=== PATIENT | male | born 1965 | race Caucasian/White ===

== ENCOUNTER 2017-03-22 16:20 | Outpatient (CLI) | payer OTHER ==
[2017-03-22 17:05] LABS: eGFR (African) > 60; eGFR (Non-African) > 60
== END 2017-03-22 16:21 ==
LOC: LAB 16:20
PROVIDERS: ATTEND Family Medicine
DX: Z00.00 Encounter for general adult medical examination without abnormal findings (principal); I10 Essential (primary) hypertension
CPT/HCPCS: 36415; 80053; 80061

== ENCOUNTER 2018-04-18 10:49 | Day surgery (SDC) | payer OTHER ==
[~2018-04-18 10:49] MED LIST: LACTATED RINGERS 1,000 ML IV.SOLN IV ONE; LIDOCAINE HCL/PF 2% 100 MG/5 ML VIAL IJ ONE; PROPOFOL 200 MG/20 ML VIAL IV ONE; SALINE FLUSH 10 ML DISP.SYRIN IVF ONE
--- NOTE | 2018-04-19 14:40 | GI Report ---
REFERRING PHYSICIAN: Dr. Butch Leo LEAD SOFTWARE DEVELOPMENT ENGINEER: Ang Storey MD PROCEDURE MEDICATION: Propofol as per anesthesia. INDICATIONS: Patient is a 53-year-old man referred for a screening colonoscopy. He denies any change in his stool or blood in the stool. He denies a family history of colorectal cancer. His father had stomach cancer apparently. PROCEDURE PERFORMED: Colonoscopy and polypectomy. PROCEDURE: An Olympus video colonoscope was advanced to the rectum and slowly advanced all the way to the cecum. The appendiceal orifice and terminal ileum looked normal. On slow withdrawal, the cecum and ascending colon with no obvious intraluminal lesions noted. In the transverse colon at 70 cm, patient has a 3 mm to 4 mm flat polyp removed with a cold snare. The descending colon and sigmoid with some redundancy. No obvious intraluminal lesions were noted. Retroflexion of the rectum was normal. Patient tolerated the procedure well. FINDINGS: One small flat polyp removed with a cold snare in the transverse colon. RECOMMENDATIONS: 1. A high-fiber diet. 2. Pending the pathology of the polyp, consider re-looking at his colon again in 5 years. cc: Dr. Butch ARMENTA
== END 2018-04-18 10:50 ==
LOC: OPSURG 10:49
PROVIDERS: ATTEND Internal Medicine Gastroenterology
DX: Z12.11 Encounter for screening for malignant neoplasm of colon (principal); D12.3 Benign neoplasm of transverse colon
CPT/HCPCS: 45385; J2001; J2704; J7120; S1016